=== PATIENT | male | born 1985 | race Caucasian/White ===

== ENCOUNTER 2016-09-01 09:01 | Emergency (ER) | payer MEDICAID ==
[2013-03-29 22:07] VITALS: BMI 29.0
[~2016-09-01 09:01] MED LIST: LEVAQUIN750 MG PO; ZITHROMAX500 MG
== END 2016-09-01 09:42 | disposition home or self-care (01) ==
LOC: D.ER 09:01
DX: M77.9 Enthesopathy, unspecified (principal); F17.200 Nicotine dependence, unspecified, uncomplicated

== ENCOUNTER 2016-10-02 08:05 | Emergency (ER) | payer MEDICAID ==
[2013-03-29 22:07] VITALS: BMI 29.0
== END 2016-10-02 08:56 | disposition home or self-care (01) ==
LOC: D.ER 08:05
DX: M77.8 Other enthesopathies, not elsewhere classified (principal); F17.200 Nicotine dependence, unspecified, uncomplicated

== ENCOUNTER 2016-12-20 21:31 | Emergency (ER) | payer MEDICAID ==
[2013-03-29 22:07] VITALS: BMI 29.0
== END 2016-12-20 23:10 | disposition home or self-care (01) ==
LOC: D.ER 21:31
DX: S02.5XXA Fracture of tooth (traumatic), initial encounter for closed fracture (principal); X58.XXXA Exposure to other specified factors, initial encounter; Y93.89 Activity, other specified; Y92.89 Other specified places as the place of occurrence of the external cause; K02.9 Dental caries, unspecified; K08.89 Other specified disorders of teeth and supporting structures; F17.200 Nicotine dependence, unspecified, uncomplicated